=== PATIENT | female | born 1940 | race Caucasian/White ===

== ENCOUNTER 2016-08-05 08:00 | Outpatient (CLI) | payer MEDICARE, OTHER ==
[2016-08-06 20:22] LABS: TEST RESULT REPORT (())
== END 2016-08-05 08:01 | disposition home or self-care (01) ==
LOC: LAB.R 08:00
PROVIDERS: ATTEND Nurse Practitioner Obstetrics & Gynecology
DX: N76.0 Acute vaginitis (principal)
CPT/HCPCS: 81599; 87480; 87510; 87660

== ENCOUNTER 2016-12-12 12:57 | Outpatient (CLI) | payer MEDICARE, OTHER ==
--- NOTE | 2016-12-12 18:04 | XRAY Report ---
THREE-VIEW LUMBAR SPINE: 12/12/2016 CLINICAL INDICATION: Foot numbness. FINDINGS: AP, lateral, coned-down views of the lumbar spine demonstrate moderate degenerative disk a nd facet disease, with degenerative anterolisthesis of L4 on L5 by approximately 1 cm and degenerativ e dextroscoliosis. No compression fracture is seen. The bowel gas pattern appears unremarkable. IMPRESSION: MODERATE DEGENERATIVE CHANGES, WITH DEGENERATIVE ANTEROLISTHESIS OF L4 ON L5 AND DEGENER ATIVE DEXTROSCOLIOSIS. JOB #: [id number] EXT JOB #:[id number]
== END 2016-12-12 12:58 | disposition home or self-care (01) ==
LOC: DI 12:57
PROVIDERS: ATTEND Neurological Surgery
DX: M51.36 Other intervertebral disc degeneration, lumbar region (principal); M47.896 Other spondylosis, lumbar region; M43.16 Spondylolisthesis, lumbar region
CPT/HCPCS: 72100

== ENCOUNTER 2016-12-23 09:57 | Outpatient (CLI) | payer MEDICARE, OTHER ==
--- NOTE | 2016-12-23 11:46 | MRI Report ---
EXAM: MRI LUMBAR SPINE WITHOUT CONTRAST EXAM DATE: 12/23/2016 10:41 AM. CLINICAL HISTORY: Anesthesia of skin. Bilateral foot numbness for 6 months. History of right-sided sc iatica. History of removal of synovial cyst from the lumbar spine. COMPARISON: Lumbar spine plain films 12/12/2016. MRI of the lumbar spine 02/10/2012. TECHNIQUE: Multiplanar, multisequence T1-weighted and fluid-sensitive sequences of the lumbar spine f rom T12 to S1 without contrast. Other: None. FINDINGS: Spinal Cord: The conus terminates at T12-L1. The cauda equina is unremarkable. Alignment: Mild, 16 degree, dextrorotatory scoliosis is seen centered at L3. Mild, 4 mm, spondylotic spondylolisthesis is seen at L4-L5. These findings are not significantly changed. Bone Marrow: Five [id number] lumbar vertebral bodies are assumed. No gross fractures or bone les ions. No bone marrow edema. Disk Levels/Facets: T12-L1: Unremarkable on sagittal series. L1-L2: Unremarkable on sagittal series. L2-L3: Mild loss of disk space height is seen. Minimal dorsal with mild lateral and ventral circumfer ential disk bulge is present. Effacement of the ventrolateral thecal sac is noted. No stenosis. No si gnificant change. L3-L4: T2 hypointense disk signal is seen. Minimal circumferential disk bulge is noted. Tiny right fo raminal annular fissure is noted. No stenosis. No significant change. L4-L5: Marked hypertrophic degenerative facet change is present. Mild spondylolisthesis is seen. T2 h ypointense disk signal is seen. Mild circumferential disk bulge is seen. Right foraminal annular fiss ure is noted. No stenosis. No significant change. L5-S1: Moderate degenerative facet change is seen. Moderate loss of disk space height is present. Dis kogenic endplate irregularity is seen greater laterally to the right. Mild circumferential disk bulge . Asymmetric right foraminal and right lateral disk protrusion is seen. Dorsal annular fissure is see n. Effacement of exited right L5 nerve root is seen with mild lateral foraminal stenosis. This has pr ogressed. Musculature: Normal. No edema or fatty atrophy. Other: The partially visualized retroperitoneum is unremarkable. IMPRESSION: 1. Mild dextrorotatory scoliosis of the lumbar spine. Mild spondylotic spondylolisthesis at L4-L5. Th is is not significantly changed. 2. Mild spondylosis in the mid and lower lumbar spine. 3. L4-L5: Marked degenerative facet with mild degenerative disk change. No stenosis. No significant c hange. 4. L5-S1: Moderate degenerative facet and disk change. Right mild lateral foraminal stenosis is seen with mass effect on exited right L5 nerve root. Comment: The following findings are so common in adults without low back pain that while we report th eir presence, they must be interpreted with caution and in the context of the clinical situation. (Re adrienne Truong et al, Spine 2001) Prevalence of findings in patients without low back pain: Disk degeneration (any evidence): 92% Disk desiccation/T2 signal loss: 83% Disk height loss: 56% Disk bulge: 64% Disk protrusion: 32% Annular tear/high intensity zone: 38% [facility] Referring Provider Line: [phone] SITE ID: [id number]
== END 2016-12-23 09:58 | disposition home or self-care (01) ==
LOC: DI 09:57
PROVIDERS: ATTEND Neurological Surgery
DX: M47.896 Other spondylosis, lumbar region (principal); M51.36 Other intervertebral disc degeneration, lumbar region; M43.16 Spondylolisthesis, lumbar region; M41.86 Other forms of scoliosis, lumbar region; M47.897 Other spondylosis, lumbosacral region; M51.37 Other intervertebral disc degeneration, lumbosacral region
CPT/HCPCS: 72148

== ENCOUNTER 2017-02-25 09:15 | Outpatient (CLI) | payer MEDICARE, OTHER | END 2017-02-25 09:16 | disposition home or self-care (01) | LOC: LAB.F 09:15 | PROVIDERS: ATTEND Nurse Practitioner Psychiatric/Mental Health | DX: F33.9 Major depressive disorder, recurrent, unspecified (principal); E55.9 Vitamin D deficiency, unspecified; F41.1 Generalized anxiety disorder; Z79.899 Other long term (current) drug therapy ==

== ENCOUNTER 2017-02-28 11:30 | Outpatient (CLI) | payer MEDICARE, OTHER ==
[2017-02-28 18:09] LABS: BASOPHILS # (AUTO) 0.1 10^3/uL (0.0-0.1); BASOPHILS % (AUTO) 1.9 %; EOSINOPHILS # (AUTO) 0.5 10^3/uL (0.0-0.7); EOSINOPHILS % (AUTO) 7.2 %; HCT - HEMATOCRIT 39.8 % (37.0-47.0); HGB - HEMOGLOBIN 12.9 g/dL (12.0-16.0); LYMPHOCYTES # (AUTO) 1.5 10^3/uL (1.5-3.5); LYMPHOCYTES % (AUTO) 23.4 %; MEAN CORPUSCULAR HGB CONC 32.5 g/dL (32.0-36.0); MEAN CORPUSCULAR VOLUME 92.2 fL (81.0-99.0); MEAN PLATELET VOLUME 8.2 fL (7.9-10.8); MONOCYTES # (AUTO) 0.5 10^3/uL (0.0-1.0); MONOCYTES % (AUTO) 8.5 %; NEUTROPHILS # (AUTO) 3.7 10^3/uL (1.5-6.6); RED BLOOD COUNT 4.32 10^6/uL (4.20-5.40); RED CELL DISTRIBUTION WIDTH 15.1 % (12.0-15.0); UNCORRECTED WHITE BLOOD COUNT 6.3 x10^3/uL; WHITE BLOOD COUNT 6.3 x10^3/uL (4.8-10.8)
[2017-02-28 18:30] LABS: THYROID STIMULATING HORMONE 0.45 uIU/mL (0.34-5.60)
[2017-02-28 18:50] LABS: ALBUMIN/GLOBULIN RATIO 1.2 (1.0-2.2); BILIRUBIN,TOTAL 0.3 mg/dL (0.2-1.0); BUN - BLOOD UREA NITROGEN 17 mg/dL (6-20); CALCIUM 9.6 mg/dL (8.5-10.3); CARBON DIOXIDE - CO2 26 mmol/L (21-32); CHLORIDE 106 mmol/L (101-111); CHOL/HDL RATIO 2.1 (<4.4); CHOLESTEROL 199 mg/dL; CREATININE 0.9 mg/dL (0.4-1.0); GFR - MDRD 61 (>89); GLUCOSE 97 mg/dL (70-100); HDL CHOLESTEROL 95 mg/dL; POTASSIUM 3.9 mmol/L (3.5-5.0); SODIUM 137 mmol/L (135-145)
[2017-02-28 19:03] LABS: LDL/HDL RATIO 0.9 (<4.4); TRIGLYCERIDES 80 mg/dL; VLDL CHOLESTEROL 16 mg/dL
== END 2017-02-28 11:31 | disposition home or self-care (01) ==
LOC: LAB.F 11:30
PROVIDERS: ATTEND Internal Medicine
DX: E03.9 Hypothyroidism, unspecified (principal); E55.9 Vitamin D deficiency, unspecified; E78.5 Hyperlipidemia, unspecified; F33.9 Major depressive disorder, recurrent, unspecified; F41.1 Generalized anxiety disorder; Z79.899 Other long term (current) drug therapy
CPT/HCPCS: 36415; 80053; 80061; 82306; 82607; 82746; 82747; 83036; 84439; 84443; 84481; 85025

== ENCOUNTER 2017-12-05 15:00 | Outpatient (CLI) | payer MEDICARE, OTHER ==
[2017-12-05 15:24] LABS: BASOPHILS # (AUTO) 0.1 10^3/uL (0.0-0.1); BASOPHILS % (AUTO) 1.5 %; EOSINOPHILS # (AUTO) 0.5 10^3/uL (0.0-0.7); HGB - HEMOGLOBIN 12.8 g/dL (12.0-16.0); LYMPHOCYTES # (AUTO) 1.7 10^3/uL (1.5-3.5); LYMPHOCYTES % (AUTO) 22.2 %; MEAN CORPUSCULAR HGB CONC 33.9 g/dL (32.0-36.0); MEAN CORPUSCULAR VOLUME 97.2 fL (81.0-99.0); MEAN PLATELET VOLUME 6.9 fL (7.9-10.8); MONOCYTES # (AUTO) 0.7 10^3/uL (0.0-1.0); MONOCYTES % (AUTO) 9.6 %; NEUTROPHILS # (AUTO) 4.6 10^3/uL (1.5-6.6); NEUTROPHILS % (AUTO) 59.7 %; PLT - PLATELET COUNT 317 10^3/uL (130-450); RED BLOOD COUNT 3.88 10^6/uL (4.20-5.40); RED CELL DISTRIBUTION WIDTH 13.4 % (12.0-15.0); WHITE BLOOD COUNT 7.7 x10^3/uL (4.8-10.8)
[2017-12-05 15:27] LABS: PT - PROTHROMBIN TIME 11.8 secs (9.9-12.6)
[2017-12-05 15:33] LABS: CALCIUM 9.4 mg/dL (8.5-10.3); CREATININE 1.3 mg/dL (0.4-1.0)
== END 2017-12-05 15:01 | disposition home or self-care (01) ==
LOC: LAB 15:00
PROVIDERS: ATTEND Neurological Surgery
DX: Z01.812 Encounter for preprocedural laboratory examination (principal); Z22.322 Carrier or suspected carrier of Methicillin resistant Staphylococcus aureus
CPT/HCPCS: 36415; 80048; 85025; 85610; 87640

== ENCOUNTER 2018-06-29 15:58 | Outpatient (CLI) | payer MEDICARE, OTHER ==
--- NOTE | 2018-06-30 09:10 | XRAY Report ---
Reason: PAIN IN RIGHT FOOT Procedure Date: 06/29/2018 Accession Number: [id number] / [id number] Procedure: XR - Foot 3 View RT CPT Code: FULL RESULT: EXAM: RIGHT FOOT RADIOGRAPHY EXAM DATE: 06/29/2018 04:18 PM. CLINICAL HISTORY: PAIN IN RIGHT FOOT. COMPARISON: None. TECHNIQUE: 3 views. FINDINGS: Bones: There is an acute oblique nondisplaced fracture through the midportion proximal phalanx fifth digit. No other bony abnormality. Joints: Normal. No subluxations. Soft Tissues: Normal. No soft tissue swelling. IMPRESSION: There is an acute nondisplaced proximal phalangeal fracture right fifth toe as described above. [facility]
== END 2018-06-29 15:59 | disposition home or self-care (01) ==
LOC: DI 15:58
PROVIDERS: ATTEND Nurse Practitioner Family
DX: S92.514A Nondisplaced fracture of proximal phalanx of right lesser toe(s), initial encounter for closed fracture (principal)

== ENCOUNTER 2018-09-22 12:28 | Emergency (ER) | payer MEDICARE, OTHER ==
[2018-09-22 14:16] VITALS: BP 116/64
--- NOTE | 2018-09-22 14:19 | ED Physician Documentation ---
PD HPI LOWER EXT INJURY - Stated complaint Stated Complaint: TOE INFECTION - Chief complaint Chief Complaint: Ext Problem - History obtained from History obtained from: Patient - History of Present Illness PD HPI LOW EXT INJURY LOCATION: Left, Toe Type of injury: Other (rash, redness) Where injury occurred: Home Timing - onset: How many weeks ago (several weeks, worse for a few days) Timing - duration: Weeks Timing - details: Gradual onset Severity Comments: moderate rash between toes with redness of toes Improved by: Nothing Worsened by: Other (nothing) Associated symptoms: Other (redness, scaling rash between toes). No: Weakness, Numbness, Tingling, Swelling, Discolored Contributing factors: No: Anticoagulated, Prior ortho surgery, Prosthetic joint, Work related Similar symptoms before: Has not had sx before Recently seen: Not recently seen - Treatment prior to arrival Treatment prior to arrival: topical triple antibiotic - Additional information Additional information: No injury. Pt has had this rash for several weeks but it worsened for a few days Review of Systems Ten Systems: 10 systems reviewed and negative Constitutional: denies: Fever, Chills Cardiac: reports: Reviewed and negative Respiratory: reports: Reviewed and negative GI: reports: Reviewed and negative Skin: reports: Rash Musculoskeletal: denies: Extremity pain, Joint pain, Extremity swelling Neurologic: denies: Focal weakness, Numbness PD PAST MEDICAL HISTORY - Past Medical History Past Medical History: No GI: Other - Past Surgical History Past Surgical History: No - Present Medications Home Medications: Ambulatory Orders Medication Instructions Recorded Confirmed RX: HYDROcod/ACETAM 5/325 [[place] 1 - 2 ea PO Q6H PRN #15 tablet 09/06/15 5/325] Cephalexin [Keflex] 500 mg PO Q6H #28 capsule 09/22/18 RX: Clotrimazole [Antifungal 14.2 gm TP BID 14 Days #14 09/22/18 Ringworm] cream..g. - Allergies Allergies/Adverse Reactions: Allergies Allergy/AdvReac Type Severity Reaction Status Date / Time No Known Drug Allergies Allergy Verified 09/06/15 14:34 - Social History Does the pt smoke?: No Smoking Status: Never smoker Does the pt drink ETOH?: No Does the pt have substance abuse?: No - Immunizations Immunizations are current?: Yes PD ED PE NORMAL - Vitals Vital signs reviewed: Yes - General General: Alert and oriented X 3, No acute distress - HEENT HEENT: Atraumatic - Neck Neck: Supple, no meningeal sign - Cardiac Cardiac: RRR - Respiratory Respiratory: No respiratory distress - Abdomen Abdomen: Non distended - Female Female : Deferred - Rectal Rectal: Deferred - Extremities Extremities: No deformity, No tenderness to palpate, Normal ROM s pain, No edema - Neuro Neuro: Alert and oriented X 3 Eye Opening: Spontaneous Motor: Obeys Commands Verbal: Oriented GCS Score: 15 - Psych Psych: Normal mood, Normal affect PD ED PE EXPANDED - Derm Derm: Rash (scaly rash between toes with overlying erythema which is mild. no tenderness or edema) Results - Vitals Vitals: Oxygen O2 Source Room air PD MEDICAL DECISION MAKING - ED course Complexity details: re-evaluated patient, considered differential, d/w patient ED course: ddx - cellulitis, tinea pedis, abscess, nonspecific rash, allergic rash 78 y/o F with scaly rash between toes likely due to tinea pedis. Likely has superinfection given increasing redness. Mild erythema however and no fever Will give antifungals and trial of keflex. Pt to f/u w/PCP as outpt . Given return precautions if worsening pain, streaking, fever or new concerns. Departure - Departure Disposition: 01 Home, Self Care Clinical Impression: Tinea pedis Condition: Stable Record reviewed to determine appropriate education?: Yes Instructions: ED Fungal Infec Athlete Foot Follow-Up: KLEBER BURGOS ARNP [Primary Care Provider] - Prescriptions: Cephalexin [Keflex] 500 mg PO Q6H #28 capsule RX: Clotrimazole [Antifungal Ringworm] 14.2 gm TP BID 14 Days #14 cream..g. Comments: You likely have athlete's foot with a superinfection from skin break down. This can be treated with topical antifungals and I have prescribed you an oral antibiotic as well due to the possiblity of a superinfection. Follow up with your regular doctor to recheck your symptoms. Return to the ED if pain becomes severe or you develop streaking redness up your foot ore leg. Discharge Date/Time: 09/22/18 14:24
== END 2018-09-22 14:24 | disposition home or self-care (01) ==
LOC: ED 12:28
DX: B35.3 Tinea pedis (principal)
CPT/HCPCS: 99282; 99284

== ENCOUNTER 2018-12-26 11:48 | Emergency (ER) | payer MEDICARE, OTHER ==
[2018-12-26 12:00] VITALS: BP 163/83
--- NOTE | 2018-12-26 13:40 | XRAY Report ---
Reason: R wrist pain Procedure Date: 12/26/2018 Accession Number: [id number] / [id number] Procedure: XR - Wrist 4 View RT CPT Code: FULL RESULT: EXAM: RIGHT WRIST RADIOGRAPHY EXAM DATE: 12/26/2018 12:40 PM. CLINICAL HISTORY: R wrist pain. COMPARISON: None. TECHNIQUE: 3 views. FINDINGS: Bones: Osteopenia. No evidence for acute fracture or dislocation. Joints: Degenerative joint space loss of the first carpometacarpal joint. Soft Tissues: No soft tissue swelling. IMPRESSION: No radiographic evidence for acute osseous injury right wrist. [facility]
--- NOTE | 2018-12-26 13:45 | ED Physician Documentation ---
PD HPI UPPER EXT INJURY - Stated complaint Stated Complaint: RT HAND/WRIST PX - Chief complaint Chief Complaint: Ext Problem - History obtained from History obtained from: Patient - History of Present Illness Location: Right, Wrist Type of injury: Twist, Other (states she pushed off from sitting several weeks ago and has had pain since) Where injury occurred: Home Timing - onset: How many weeks ago (3) Timing - duration: Weeks (3) Timing - details: Abrupt onset Severity Comments: mild Improved by: Rest, Other (heat) Worsened by: Moving Associated symptoms: No: Weakness, Numbness, Tingling, Swelling, Discolored Contributing factors: No: Anticoagulated, Prior ortho surgery Similar symptoms before: Diagnosis (seen by her FURNITURE MANAGER who told her she has a strain), Treatment (OTC wrist brace and ice and heat) Recently seen: Clinic - Treatment prior to arrival Treatment prior to arrival: OTC wrist brace and tylenol Review of Systems Ten Systems: 10 systems reviewed and negative Constitutional: denies: Fever Cardiac: reports: Reviewed and negative Respiratory: reports: Reviewed and negative GI: reports: Reviewed and negative Skin: reports: Reviewed and negative Musculoskeletal: reports: Joint pain. denies: Neck pain, Back pain, Extremity pain, Extremity swelling, Joint swelling Neurologic: reports: Reviewed and negative. denies: Generalized weakness, Focal weakness, Numbness Immunocompromised: reports: Reviewed and negative PD PAST MEDICAL HISTORY - Past Medical History Past Medical History: No - Past Surgical History Past Surgical History: No - Present Medications Home Medications: Ambulatory Orders Medication Instructions Recorded Confirmed HYDROcod/ACETAM 5/325 [[place] 5/325] 1 - 2 ea PO Q6H PRN #15 tablet 09/06/15 Cephalexin [Keflex] 500 mg PO Q6H #28 capsule 09/22/18 Clotrimazole [Antifungal Ringworm] 14.2 gm TP BID 14 Days #14 09/22/18 cream..g. - Allergies Allergies/Adverse Reactions: Allergies Allergy/AdvReac Type Severity Reaction Status Date / Time No Known Drug Allergies Allergy Verified 12/26/18 11:53 - Social History Does the pt smoke?: No Smoking Status: Never smoker Does the pt drink ETOH?: No Does the pt have substance abuse?: No - Immunizations Immunizations are current?: Yes PD ED PE NORMAL - Vitals Vital signs reviewed: Yes - General General: Alert and oriented X 3, No acute distress, Well developed/nourished - HEENT HEENT: Atraumatic - Neck Neck: Supple, no meningeal sign - Cardiac Cardiac: RRR - Respiratory Respiratory: No respiratory distress, Clear bilaterally - Abdomen Abdomen: Non distended - Female Female : Deferred - Rectal Rectal: Deferred - Derm Derm: Normal color, Warm and dry, No rash - Neuro Neuro: Alert and oriented X 3, No motor deficit, No sensory deficit Eye Opening: Spontaneous Motor: Obeys Commands Verbal: Oriented GCS Score: 15 - Psych Psych: Normal mood, Normal affect PD ED PE EXPANDED - Extremities Extremities: Tenderness (over L medial wrist ), Motor intact, Sensory intact, Vascular intact, Tendon intact, Other (full ROM). No: Deformity, Limited ROM, Swelling, Bruising, Abrasion, Laceration, Joint effusion Results - Vitals Vitals: Vital Signs - 24 hr 12/26/18 11:51 Temperature 36.6 C Heart Rate 78 Respiratory 16 Rate Blood Pressure 163/83 H O2 Saturation 100 Oxygen O2 Source Room air - Rads (name of study) R wrist xray Radiology: Final report received, See rad report PD MEDICAL DECISION MAKING - ED course Complexity details: reviewed results, considered differential, d/w patient ED course: ddx - wrist sprain, strain, fracture, carpal tunnel syndroem 78 y/o F with hx and exam as documented, negative xray, likely sprain, can continue supportive care at home Departure - Departure Disposition: 01 Home, Self Care Clinical Impression: Right wrist sprain Qualifiers: Encounter type: subsequent encounter Qualified Code(s): S63.501D - Unspecified sprain of right wrist, subsequent encounter Condition: Stable Record reviewed to determine appropriate education?: Yes Instructions: ED Sprain Wrist Follow-Up: Keily Roach PA [Primary Care Provider] - As Needed (To recheck your symptoms and perhaps suggest some strengthening exercises ) Comments: Your xray today was negative for fracture or bony abnormality. You should follow up with your regular provider to reevaluate your symptoms. Use heat for pain and tylenol and ibuprofen.
== END 2018-12-26 13:49 | disposition home or self-care (01) ==
LOC: ED 11:48
DX: S63.501A Unspecified sprain of right wrist, initial encounter (principal); X50.1XXA Overexertion from prolonged static or awkward postures, initial encounter; M81.0 Age-related osteoporosis without current pathological fracture
CPT/HCPCS: 99282; 99283

== ENCOUNTER 2019-07-01 13:26 | Emergency (ER) | payer MEDICARE, OTHER ==
[2019-07-01 13:38] VITALS: BP 128/74
--- NOTE | 2019-07-01 14:01 | ED Physician Documentation ---
PD HPI LOWER EXT INJURY - Stated complaint Stated Complaint: LT FOOT INJURY - Chief complaint Chief Complaint: Trauma Ext - History obtained from History obtained from: Patient (Patient presents today reporting that she was at home 3 days ago walking through her house when she accidentally kicked the leg below her chairs, causing her to fall around. She did not hit her head she did not lose consciousness. She states that symptoms happen her left foot third toe skin edematous, and hematomas formed. She has tried to ice and elevate it thinking that the painful. She is in today to get evaluated to see if she has a fractured foot or toe. No other concerns today) - History of Present Illness PD HPI LOW EXT INJURY LOCATION: Left, Foot Type of injury: Blunt / blow Where injury occurred: Home Timing - onset: Yesterday Review of Systems Constitutional: denies: Fever Eyes: denies: Loss of vision Cardiac: denies: Chest pain / pressure, Palpitations Respiratory: denies: Dyspnea Musculoskeletal: reports: Other (Left foot, left foot third toe, edema pain.) Neurologic: denies: Syncope, Seizure, Head injury, LOC PD PAST MEDICAL HISTORY - Past Medical History Past Medical History: Yes GI: Other - Past Surgical History Past Surgical History: No - Present Medications Home Medications: Ambulatory Orders Medication Instructions Recorded Confirmed HYDROcod/ACETAM 5/325 [[place] 5/325] 1 - 2 ea PO Q6H PRN #15 tablet 09/06/15 Cephalexin [Keflex] 500 mg PO Q6H #28 capsule 09/22/18 Clotrimazole [Antifungal Ringworm] 14.2 gm TP BID 14 Days #14 09/22/18 cream..g. - Allergies Allergies/Adverse Reactions: Allergies Allergy/AdvReac Type Severity Reaction Status Date / Time No Known Drug Allergies Allergy Verified 07/01/19 13:35 - Social History Does the pt smoke?: No Smoking Status: Never smoker Does the pt drink ETOH?: No Does the pt have substance abuse?: No - Immunizations Immunizations are current?: Yes PD ED PE NORMAL - General General: Alert and oriented X 3, No acute distress - HEENT HEENT: Atraumatic, PERRL - Neck Neck: Supple, no meningeal sign - Respiratory Respiratory: No respiratory distress - Abdomen Abdomen: Soft, Non tender PD ED PE EXPANDED - Extremities Extremities: Left foot (Ecchymosis noted to the midfoot region between digits 2 3 and 4, with mild tender to palp. No crepitus or step-off noted. ), Left toe(s) ( Third toe noted to be dermatitis slightly angulated laterally with ecchymosis. Very tender to palp.) Results - Vitals Vitals: Vital Signs - 24 hr 07/01/19 13:35 Temperature 36.6 C Heart Rate 88 Respiratory 16 Rate Blood Pressure 128/74 O2 Saturation 96 Oxygen O2 Source Room air - Rads (name of study) No standard instances Radiology: Final report received (Oblique fracture of the proximal phalanx third digit minimal displacement) PD MEDICAL DECISION MAKING - ED course Complexity details: reviewed results, re-evaluated patient, considered differential (Sprain toe versus fracture toe.), d/w patient Departure - Departure Disposition: 01 Home, Self Care Clinical Impression: Toe fracture, left Qualifiers: Encounter type: initial encounter Toe: unspecified toe Fracture type: closed Fracture alignment: displaced Qualified Code(s): S92.912A - Unspecified fracture of left toe(s), initial encounter for closed fracture Condition: Good Instructions: ED Fx Toe Closed Comments: Your third toe on your left foot is fractured. Provided you with a postop walking shoe to wear on your foot when you are ambulating. Wear this for the next 3 to 4 weeks this will help your toe heal. You can also homer tape your third toe to your second toe to help keep it straight. He can use ibuprofen and or Tylenol for pain control. When you are not walking around apply ice to your foot toe area to help reduce pain and swelling. Contact your primary care physician and follow-up with him in 3 to 4 weeks. Discharge Date/Time: 07/01/19 14:43
--- NOTE | 2019-07-01 14:20 | XRAY Report ---
Reason: kicked chair leg, third toe px/edema up midfoot Procedure Date: 07/01/2019 Accession Number: [id number] / [id number] Procedure: XR - Foot 3 View LT CPT Code: Final Report FULL RESULT: EXAM: LEFT FOOT RADIOGRAPHY EXAM DATE: 07/01/2019 02:14 PM. CLINICAL HISTORY: Kicked chair leg, 3rd toe pain/edema up midfoot. COMPARISON: None. TECHNIQUE: 3 views. FINDINGS: Bones: There is no oblique fracture of the proximal phalanx of the 3rd digit with minimal displacement. There are no other visible fractures. Joints: Normal. No subluxations. Soft Tissues: Normal. No soft tissue swelling. IMPRESSION: Fracture of the proximal phalanx of the 3rd digit. [facility]
== END 2019-07-01 14:43 | disposition home or self-care (01) ==
LOC: ED 13:26
DX: S92.512A Displaced fracture of proximal phalanx of left lesser toe(s), initial encounter for closed fracture (principal); W18.09XA Striking against other object with subsequent fall, initial encounter; Y92.009 Unspecified place in unspecified non-institutional (private) residence as the place of occurrence of the external cause
CPT/HCPCS: 99283; 99284

== ENCOUNTER 2019-12-16 09:45 | Outpatient (CLI) | payer MEDICARE, OTHER ==
[2019-12-16] MEDS ORDERED: IOVERSOL 320 100 ML VIAL IVP ONE ×2 (10:05→11:16)
[2019-12-16] MEDS ORDERED: IOVERSOL 320 50 ML VIAL ONE (10:05)
[2019-12-16 10:18] LABS: ALBUMIN 4.2 g/dL (3.2-5.5); ALBUMIN/GLOBULIN RATIO 1.3 (1.0-2.2); BILIRUBIN,TOTAL 0.6 mg/dL (0.2-1.0); CREATININE 1.1 mg/dL (0.4-1.0); TOTAL PROTEIN 7.5 g/dL (6.7-8.2)
[2019-12-16] MEDS ORDERED: IOVERSOL 320 50 ML VIAL PO ONE (11:16)
--- NOTE | 2019-12-16 11:40 | CT Report ---
PROCEDURE: Abdomen/Pelvis W INDICATIONS: ABDOMINAL DISTENSION CONTRAST: IV CONTRAST: Optiray 320 ml: 100 PO CONTRAST: Optiray 320 ml50 TECHNIQUE: After the administration of intravenous contrast, 5 mm thick sections acquired from the diaphragms to the symphysis. 5 mm thick coronal and sagittal reformats were acquired. For radiation dose reducti on, the following was used: automated exposure control, adjustment of mA and/or kV according to guicho ent size. COMPARISON: 09/06/2015 CT abdomen and pelvis FINDINGS: Image quality: Excellent. ABDOMEN: Lung bases: Lung bases are clear. Heart size is normal. Solid organs: Liver and spleen are normal in size and enhancement. Gallbladder not visualized, pres umably removed though there are no metallic cholecystectomy clips present. Biliary system is nondilat ed. Pancreas enhances normally. No adrenal nodules. Kidneys demonstrate normal size and enhancemen t, without hydronephrosis. Peritoneum and bowel: Of bowel wall thickening or abnormally enlarged loop of bowel. No pericolonic o r mesenteric inflammatory changes. Scattered colonic diverticula are present. Nodes and vessels: No retroperitoneal or mesenteric adenopathy by size criteria. Aorta and inferior vena cava are normal in size. Miscellaneous: No ventral hernias. PELVIS: Genitourinary: Bladder wall thickness is normal. Miscellaneous: No inguinal hernias or adenopathy. Bones: No suspicious bony lesions. No vertebral body compression fractures. IMPRESSION: No acute finding explaining abdominal pain or distention. Nonvisualized gallbladder presumably representing prior cholecystectomy, though there are no metallic cholecystectomy clips demonstrated. Reviewed by: Tonny Irving MD on 12/16/2019 11:38 AM PDT Approved by: Tonny Irving MD on 12/16/2019 11:38 AM PDT Station ID: [id number]
== END 2019-12-16 09:46 | disposition home or self-care (01) ==
LOC: DI 09:45
PROVIDERS: ATTEND Nurse Practitioner Family
DX: R14.0 Abdominal distension (gaseous) (principal)
CPT/HCPCS: 36415; 74177; 80053; Q9967

== ENCOUNTER 2020-08-08 18:45 | Outpatient (CLI) | payer MEDICARE, OTHER ==
--- NOTE | 2020-08-09 17:20 | Ultrasound Report ---
PROCEDURE: Carotid Doppler Complete INDICATIONS: CAROTID BRUIT TECHNIQUE: Color and pulse Doppler interrogation was performed of both carotid systems, with image documentation and velocity measurements. COMPARISON: None. FINDINGS: Right side: Brachial blood pressure: 134/62 mm Hg. Common carotid artery peak systolic velocity: 39 cm/sec. Internal carotid artery peak systolic velocity: 65 cm/sec. Internal carotid artery end diastolic velocity: 20 cm/sec. External carotid artery peak systolic velocity: 72 cm/sec. ICA/CCA peak systolic ratio: 1.7 . Hodgson scale imaging description: There is mild calcified plaque within the carotid bulb. Percent internal carotid artery stenosis: Less than 50%. Vertebral artery: Flow direction is antegrade. Left side: Brachial blood pressure: 137/70 mm Hg. Common carotid artery peak systolic velocity: 56 cm/sec. Internal carotid artery peak systolic velocity: 54 cm/sec. Internal carotid artery end diastolic velocity: 16 cm/sec. External carotid artery peak systolic velocity: 5 cm/sec. ICA/CCA peak systolic ratio: 1 . Hodgson scale imaging description: There is mild calcified plaque in the carotid bulb. Percent internal carotid artery stenosis: Less than 50% . Vertebral artery: Flow direction is antegrade. IMPRESSION: 1. Mild narrowing of less than 50% in the carotid bulbs. The estimate of stenosis included in the report of the imaging study was calculated using the NASCET method Reviewed by: Júnior Clark MD on 08/09/2020 5:19 PM PDT Approved by: Júnior Clark MD on 08/09/2020 5:19 PM PDT Station ID: [id number]
== END 2020-08-08 18:46 | disposition home or self-care (01) ==
LOC: DI 18:45
PROVIDERS: ATTEND Nurse Practitioner Family
DX: R09.89 Other specified symptoms and signs involving the circulatory and respiratory systems (principal)
CPT/HCPCS: 93880

== ENCOUNTER 2021-02-21 15:05 | Outpatient (CLI) | payer MEDICARE, OTHER ==
--- NOTE | 2021-02-21 16:41 | XRAY Report ---
PROCEDURE: Hand 2 View BILAT INDICATIONS: OSTEOARTHRITIS OF FIRST CARPOMETACARPAL JOINT OF THE THUMB TECHNIQUE: 2 views of the bilateral hand(s) acquired. COMPARISON: Right wrist radiograph dated December 26, 2018. FINDINGS: BONES: No acute, displaced fracture or dislocation. Left: Moderate joint space loss and osteophytosis of the second through fifth distal interphalangeal joints. Diffuse osteopenia. Right: Moderate joint space loss and osteophytosis of the second through fifth distal interphalangeal joints. Mild joint space loss and osteophytosis about the first carpometacarpal articulation. Diffus e osteopenia. SOFT TISSUES: No focal abnormality. IMPRESSION: 1.Osteoarthrosis of the hands as detailed above. Reviewed by: Duke Holliday MD on 02/21/2021 4:40 PM [facility] Approved by: Duke Holliday MD on 02/21/2021 4:40 PM [facility] Station ID: [id number]
== END 2021-02-21 15:06 | disposition home or self-care (01) ==
LOC: DI 15:05
PROVIDERS: ATTEND Nurse Practitioner Family
DX: M19.042 Primary osteoarthritis, left hand (principal); M19.041 Primary osteoarthritis, right hand; M85.842 Other specified disorders of bone density and structure, left hand; M85.841 Other specified disorders of bone density and structure, right hand

== ENCOUNTER 2021-08-08 16:11 | Outpatient (CLI) | payer MEDICARE, OTHER ==
[2021-08-08 19:51] LABS: BASOPHILS # (AUTO) 0.1 10^3/uL (0.0-0.1); BASOPHILS % (AUTO) 1.9 %; EOSINOPHILS # (AUTO) 0.4 10^3/uL (0.0-0.7); EOSINOPHILS % (AUTO) 5.4 %; HCT - HEMATOCRIT 40.6 % (37.0-47.0); HGB - HEMOGLOBIN 13.2 g/dL (12.0-16.0); LYMPHOCYTES # (AUTO) 1.9 10^3/uL (1.5-3.5); LYMPHOCYTES % (AUTO) 26.4 %; MEAN CORPUSCULAR HEMOGLOBIN 31.1 pg (27.0-31.0); MEAN CORPUSCULAR HGB CONC 32.5 g/dL (32.0-36.0); MEAN CORPUSCULAR VOLUME 95.5 fL (81.0-99.0); MONOCYTES # (AUTO) 0.7 10^3/uL (0.0-1.0); MONOCYTES % (AUTO) 8.9 %; NEUTROPHILS # (AUTO) 4.2 10^3/uL (1.5-6.6); PLT - PLATELET COUNT 347 10^3/uL (130-450); RED BLOOD COUNT 4.25 10^6/uL (4.20-5.40); RED CELL DISTRIBUTION WIDTH 14.6 % (12.0-15.0); WHITE BLOOD COUNT 7.3 x10^3/uL (4.8-10.8)
[2021-08-08 20:10] LABS: BUN - BLOOD UREA NITROGEN 28 mg/dL (6-20); CALCIUM 9.6 mg/dL (8.5-10.3); CARBON DIOXIDE - CO2 24 mmol/L (21-32); CHLORIDE 106 mmol/L (101-111); CHOL/HDL RATIO 4.5 (<4.4); CHOLESTEROL 254 mg/dL; CREATININE 1.2 mg/dL (0.4-1.0); GFR - MDRD 43 (>89); GLUCOSE 139 mg/dL (70-100); HDL CHOLESTEROL 57 mg/dL; LDL CHOLESTEROL,CALCULATED 151 mg/dL; LDL/HDL RATIO 2.6 (<4.4); POTASSIUM 4.2 mmol/L (3.5-5.0); SODIUM 137 mmol/L (135-145); TRIGLYCERIDES 231 mg/dL; VLDL CHOLESTEROL 46 mg/dL
[2021-08-08 20:15] LABS: BILIRUBIN,URINE NEGATIVE (NEGATIVE); GLUCOSE, URINE (UA) NEGATIVE (NEGATIVE); KETONES,URINE (UA) NEGATIVE (NEGATIVE); LEUKOCYTE ESTERASE, URINE MODERATE (NEGATIVE); NITRITE,URINE NEGATIVE (NEGATIVE); OCCULT BLOOD,URINE TRACE-INTA (NEGATIVE); PH,URINE 5.5 PH (5.0-7.5); PROTEIN,URINE NEGATIVE (NEGATIVE); UROBILINOGEN,URINE 0.2 (NORMAL) E.U./dL (NORMAL)
[2021-08-08 20:18] LABS: CLARITY,URINE CLOUDY (CLEAR)
[2021-08-08 20:28] LABS: AMORPHOUS SEDIMENT,UR Few /LPF; BACTERIA,URINE Few /HPF (None Seen); CRYSTALS,URINE 11-25 Ca Oxalate /LPF; RBC,URINE 0-5 /HPF (0-5); SQUAMOUS EPITHELIAL CELL,UR FEW Squamous (<= Few)
== END 2021-08-08 16:12 | disposition home or self-care (01) ==
LOC: LAB.S 16:11
PROVIDERS: ATTEND Nurse Practitioner Family
DX: R77.8 Other specified abnormalities of plasma proteins (principal); R31.29 Other microscopic hematuria; E03.9 Hypothyroidism, unspecified; E78.5 Hyperlipidemia, unspecified; M18.9 Osteoarthritis of first carpometacarpal joint, unspecified
CPT/HCPCS: 36415; 80048; 80061; 81001; 82728; 83540; 83721; 84443; 84466; 85025; 87077; 87086; 87181

== ENCOUNTER 2022-04-10 10:02 | Outpatient (CLI) | payer MEDICARE, OTHER ==
--- NOTE | 2022-04-11 09:27 | Mammography Report ---
BILATERAL DIGITAL SCREENING MAMMOGRAM 3D/2D: 04/10/2022 CLINICAL: Routine screening. Comparison is made to exam dated: 02/23/2014 mammogram - [facility]. There are scattered areas of fibroglandular density in both breasts (category b / 25%-50% glandular t issue). No significant masses, calcifications, or other findings are seen in either breast. There has been no significant interval change. IMPRESSION: NEGATIVE There is no mammographic evidence of malignancy. A 1 year screening mammogram is recommended. Based on the Tyrer Cuzick model (a risk assessment model) the patients lifetime risk is 0.6% and her 10 year risk is 0.0%. According to the ACR, ACS, and NCCN guidelines, an annual breast MRI exam faisal g with mammogram is recommended if the patients lifetime risk is 20% or greater. This exam was interpreted at Station ID: [id number]. NOTE: For mammograms, a report in lay terms will be sent to the patient. Approximately 15% of breast malignancies will not be visualized mammographically. In the management of a palpable breast mass, a negative mammogram must not discourage biopsy of a clinically suspicious lesion. Electronically Signed By: Katerine [email or web address]:04/10/2022 17:23:28 ACR BI-RADS Category 1: Negative 3341F PARENCHYMAL PATTERN: (A) - The breast(s) demonstrate(s) scattered fibroglandular densities. BI-RADS CATEGORY: (1) - 1 RECOMMENDATION: (ANNUAL) - Recommend routine annual screening mammography. [id number] 1 year screening LATERALITY: (B)
== END 2022-04-10 10:03 | disposition home or self-care (01) ==
LOC: DI.S 10:02
PROVIDERS: ATTEND Nurse Practitioner Family
DX: Z12.31 Encounter for screening mammogram for malignant neoplasm of breast (principal)

== ENCOUNTER 2022-08-22 08:00 | Outpatient (CLI) | payer MEDICARE, OTHER ==
[2022-08-22 19:37] LABS: BACTERIAL VAGINOSIS DNA NEGATIVE (NEGATIVE); CANDIDA KRUSEI DNA NEGATIVE (NEGATIVE); TRICHOMONAS VAGINALIS DNA NEGATIVE (NEGATIVE)
[2022-08-22 19:38] LABS: CANDIDA GLABRATA DNA NEGATIVE (NEGATIVE); CANDIDA GROUP DNA NEGATIVE (NEGATIVE)
== END 2022-08-22 23:59 | disposition home or self-care (01) ==
LOC: LAB.WC 08:00
PROVIDERS: ATTEND Nurse Practitioner
DX: L29.8 Other pruritus (principal); N89.8 Other specified noninflammatory disorders of vagina
CPT/HCPCS: 81514

== ENCOUNTER 2023-10-10 09:17 | Outpatient (CLI) | payer MEDICARE, OTHER ==
[2023-10-10 15:32] LABS: BASOPHILS # (AUTO) 0.1 10^3/uL (0.0-0.1); BASOPHILS % (AUTO) 1.8 %; EOSINOPHILS # (AUTO) 0.4 10^3/uL (0.0-0.7); EOSINOPHILS % (AUTO) 4.7 %; HCT - HEMATOCRIT 40.8 % (37.0-47.0); HGB - HEMOGLOBIN 13.1 g/dL (12.0-16.0); LYMPHOCYTES # (AUTO) 1.7 10^3/uL (1.5-3.5); LYMPHOCYTES % (AUTO) 21.4 %; MEAN CORPUSCULAR HEMOGLOBIN 31.6 pg (27.0-31.0); MEAN CORPUSCULAR HGB CONC 32.1 g/dL (32.0-36.0); MEAN CORPUSCULAR VOLUME 98.6 fL (81.0-99.0); MONOCYTES # (AUTO) 0.8 10^3/uL (0.0-1.0); MONOCYTES % (AUTO) 9.5 %; NEUTROPHILS # (AUTO) 4.9 10^3/uL (1.5-6.6); NEUTROPHILS % (AUTO) 62.3 %; PLT - PLATELET COUNT 330 10^3/uL (130-450); RED BLOOD COUNT 4.14 10^6/uL (4.20-5.40); RED CELL DISTRIBUTION WIDTH 13.9 % (12.0-15.0); WHITE BLOOD COUNT 7.9 x10^3/uL (4.8-10.8)
[2023-10-10 15:50] LABS: ALBUMIN 4.3 g/dL (3.2-5.5); ALBUMIN/GLOBULIN RATIO 1.5 (1.0-2.2); ALKALINE PHOSPHATASE 47 IU/L (42-121); ALT ALANINE AMINOTRANSFERASE 18 IU/L (10-60); AST ASPARTATE AMINOTRANSFERASE 23 IU/L (10-42); BILIRUBIN,TOTAL 0.4 mg/dL (0.2-1.0); BUN - BLOOD UREA NITROGEN 20 mg/dL (6-20); CALCIUM 10.2 mg/dL (8.5-10.3); CARBON DIOXIDE - CO2 27 mmol/L (21-32); CHLORIDE 108 mmol/L (101-111); CHOL/HDL RATIO 2.4 (<4.4); CHOLESTEROL 164 mg/dL; CREATININE 1.1 mg/dL (0.6-1.3); GFR - MDRD 47 (>89); GLUCOSE 92 mg/dL (74-104); HDL CHOLESTEROL 67 mg/dL; POTASSIUM 4.1 mmol/L (3.5-4.5); SODIUM 139 mmol/L (135-145); TOTAL PROTEIN 7.2 g/dL (6.4-8.9); TRIGLYCERIDES 86 mg/dL; VLDL CHOLESTEROL 17 mg/dL
[2023-10-10 15:51] LABS: LDL CHOLESTEROL,CALCULATED 80 mg/dL; LDL/HDL RATIO 1.2 (<4.4)
== END 2023-10-10 09:18 | disposition home or self-care (01) ==
LOC: LAB.S 09:17
PROVIDERS: ATTEND Nurse Practitioner Family
DX: F33.9 Major depressive disorder, recurrent, unspecified (principal); F41.1 Generalized anxiety disorder; E53.9 Vitamin B deficiency, unspecified
CPT/HCPCS: 36415; 80053; 80061; 82607; 83721; 85025